=== PATIENT | male | born 1990 | race African-American/Black ===

== ENCOUNTER 2020-05-13 01:10 | Emergency (ER) | payer SELFPAY ==
[~2020-05-13] VITALS: Ht 172.7 cm; Wt 75.0 kg
[2020-05-13] MEDS ORDERED: IBUPROFEN 600MG TABLET PO ONE (02:15)
[2020-05-13] MEDS ORDERED: IBUP-2029 MT (02:52)
== END 2020-05-13 03:58 | disposition home or self-care (01) ==
LOC: ER 01:10
DX: S60.212A Contusion of left wrist, initial encounter (principal); W18.39XA Other fall on same level, initial encounter; Y93.89 Activity, other specified; Y92.89 Other specified places as the place of occurrence of the external cause; Y99.8 Other external cause status
CPT/HCPCS: 73110; 73130; 99284